=== PATIENT | female | born 2000 | race Caucasian/White ===

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

== ENCOUNTER 2022-11-07 17:20 | Emergency (ER) | payer BC ==
[~2022-11-07] VITALS: Ht 154.9 cm; Wt 73.0 kg
[2022-11-07] MEDS ORDERED: MORPHINE SULFATE 10 MG/ML CPJ IM ONE (17:45)
[2022-11-07] MEDS ORDERED: IBUP-2029 MT (19:00)
[2022-11-07] MEDS ORDERED: T3 PO (19:00)
[2022-11-07 20:13] VITALS: BP 112/60
== END 2022-11-07 20:13 | disposition home or self-care (01) ==
LOC: ER 17:48
DX: S93.402A Sprain of unspecified ligament of left ankle, initial encounter (principal); W18.39XA Other fall on same level, initial encounter; Y93.89 Activity, other specified; Y92.89 Other specified places as the place of occurrence of the external cause; Y99.8 Other external cause status
CPT/HCPCS: 29515; 73610; 96372; 99283; J2270; Z7610